=== PATIENT | female | born 1970 | race Caucasian/White ===

== ENCOUNTER → 2016-10-08 | Outpatient (CLI) | payer BC ==
[~2016-10-08] MED LIST: DIFLUCAN100 MG PO; PRENATAL1 TAB PO
== END | disposition home or self-care (01) ==
LOC: MAMMO 09-27 14:00
DX: Z12.31 Encounter for screening mammogram for malignant neoplasm of breast (principal)

== ENCOUNTER 2016-11-24 12:21 | Emergency (ER) | payer BC ==
[~2016-11-24] VITALS: Ht 160 cm; Wt 74.8 kg
[2016-11-24 12:57] LABS: BASO % 0.1 % (0.0-1.0); HEMOGLOBIN 12.8 g/dl (12.0-16.0); LYMPH # 1.1 10*3/uL (1.3-4.4); LYMPH % 8.1 % (27.0-41.0); MEAN CELL VOLUME 93.7 fl (81.0-99.0); MEAN CORPUSCULAR HGB 32.4 pg (27.0-31.0); MEAN CORPUSCULAR HGB CONC 34.6 g/dl (33.0-37.0); MEAN PLATELET VOLUME 9.5 fl (9.6-12.3); MONO # 0.8 10*3/uL (0.1-1.0); MONO % 5.8 % (3.0-9.0); NEUT # 11.3 10*3/uL (2.3-7.9); NEUT % 85.8 % (47.0-73.0); PLATELET COUNT AUTOMATED 217 10*3/uL (130-400); RED BLOOD COUNT 3.95 10*6/uL (4.10-5.10); WHITE BLOOD COUNT 13.2 10*3/uL (4.8-10.8)
[2016-11-24 13:11] LABS: ALBUMIN 3.6 gm/dl (3.1-4.5); ALKALINE PHOSPHATASE 55 U/L (45-117); BILIRUBIN, TOTAL 0.4 mg/dl (0.2-1.0); BUN 11 mg/dl (7-24); CARBON DIOXIDE 24 mmol/L (21-32); CHLORIDE 103 mmol/L (98-107); EST GLOM FILT AFRICAN AMERICAN > 60 ml/min; GLUCOSE 104 mg/dL (65-99); POTASSIUM 4.1 mmol/L (3.5-5.1); SGOT/AST 10 IU/L (3-35); SGPT/ALT 13 U/L (12-78); SODIUM 137 mmol/L (136-145); TOTAL PROTEIN 7.9 gm/dL (6.4-8.2)
[2016-11-24] MEDS ORDERED: PRILOSEC20 M1 PO (15:56)
[2016-11-24] MEDS ORDERED: ZOFRAN ODT4 MG SL (16:06)
[2016-11-24] MEDS ORDERED: OMEPRAZOLE20 M2 PO (16:43)
== END 2016-11-24 16:08 | disposition home or self-care (01) ==
LOC: ED 12:21
PROVIDERS: Registered Nurse
DX: R10.13 Epigastric pain (principal); R11.2 Nausea with vomiting, unspecified; Z88.1 Allergy status to other antibiotic agents

== ENCOUNTER → 2019-07-10 | Outpatient (CLI) | payer OTHER ==
[~2019-07-10] MED LIST changes: +OMEPRAZOLE20 M2 PO; +PRILOSEC20 M1 PO; +ZOFRAN ODT4 MG SL
== END | disposition home or self-care (01) ==
LOC: MAMMO 06-05 17:00
DX: Z12.31 Encounter for screening mammogram for malignant neoplasm of breast (principal)